=== PATIENT | male | born 1960 | race African-American/Black ===

== ENCOUNTER 2017-03-25 17:24 | Emergency (ER) | payer OTHER ==
[2017-03-25 17:28] VITALS: BP 153/80; PULSE 92; TEMP 102.5; BMI 21.7
--- NOTE | 2017-03-25 17:51 | PDOC ---
Attending Attestation - Resident Resident Name: Srinivas Perez - ED Attending Attestation I have performed the following: I have examined & evaluated the patient, The case was reviewed & discussed with the resident, I agree w/resident's findings & plan, Exceptions are as noted - HPI HPI: 56 yo M history BPH - Physicial Exam PE: GENERAL: Awake, alert, and fully oriented, in no acute distress HEAD: No signs of trauma EYES: PERRLA, EOMI, sclera anicteric, conjunctiva clear ENT: Auricles normal inspection, hearing grossly normal, nares patent, oropharynx clear without exudates. Moist mucosa. R TM wnl. L TM obscured by cerumen. NECK: Normal ROM, supple, no lymphadenopathy, JVD, or masses LUNGS: Breath sounds equal, clear to auscultation bilaterally. No wheezes, and no crackles HEART: Regular rate and rhythm, normal S1 and S2, no murmurs, rubs or gallops ABDOMEN: Soft, +tenderness to L side, normoactive bowel sounds. No guarding, no rebound. No masses EXTREMITIES: Normal range of motion, no edema. No clubbing or cyanosis. No cords, erythema, or tenderness NEUROLOGICAL: Cranial nerves II through XII grossly intact. Normal speech, normal gait SKIN: Warm, Dry, normal turgor, no rashes or lesions noted. - Medical Decision Making Pt with urine sample at the bedside, urine appears cloudy and brown. Poss UTI related to his BPH. Will pursue fever w/u including a flu swab.
[2017-03-25] MEDS ORDERED: SODIUM CHLORIDE 1,000 ML IV STA (17:55)
[2017-03-25] MEDS ORDERED: ACETAMINOPHEN INJECTION 100 ML IVPB ONE (18:20)
[2017-03-25] MEDS ORDERED: ACETAMINOPHEN 325 MG TABLET (FP) ONE ×2 (18:23→19:56)
--- NOTE | 2017-03-25 18:32 | PDOC ---
History of Present Illness - General Chief Complaint: Pain, Acute Stated Complaint: SIDE PAIN/DARK URINE/CHILLS Time Seen by Provider: 03/25/17 17:36 History Source: Patient Exam Limitations: No Limitations - History of Present Illness Initial Comments: 03/25/17 18:27 The patient is a 56 year old male, with a significant past medical history of BPH, Hep C, and daily heroin use who presents to the emergency department with 2 day history of left side pain. Patient states the pain was worsened over the last day, and it is a dull, 4/10 pain that is worse when he coughs. Patient endorses fevers, chills (2 weeks ago that resolved and then recently returned), occasional dysuria, and lightheadedness. Patient denies chest pain, sob, n/v/d/c , abdominal pain, hematuria. Allergies: NKDA Past surgical history: achilles surgery Social history: 1/2 ppd for 20 years, heroin use 10-20 yrs every day (sniffs) PMD - does not have one 03/25/17 18:32 Past History - Past Medical History Allergies/Adverse Reactions: Allergies Allergy/AdvReac Type Severity Reaction Status Date / Time No Known Allergies Allergy Verified 03/25/17 17:28 Home Medications: Ambulatory Orders Sulfamethoxazole/Trimethoprim [Bactrim Ds -] 1 tab PO BID #28 tablet 03/25/17 Other medical history: HEROIN USE LAST USED THIS AM 03/25/17 - Suicide/Smoking/Psychosocial Hx Smoking History: Current every day smoker Number of Cigarettes Smoked Daily: 10 Information on smoking cessation initiated: Yes 'Breaking Loose' booklet given: 03/25/17 Hx Alcohol Use: No Drug/Substance Use Hx: Yes (HEROIN) Substance Use Type: Heroin Review of Systems - Review of Systems Able to Perform ROS?: Yes Comments:: 03/25/17 18:27 GENERAL/CONSTITUTIONAL: +fever,+ chills. No weakness. HEAD, EYES, EARS, NOSE AND THROAT: No change in vision. No ear pain or discharge. No sore throat. CARDIOVASCULAR: No chest pain or shortness of breath RESPIRATORY: No cough, wheezing, or hemoptysis. GASTROINTESTINAL: No nausea, vomiting, diarrhea or constipation. GENITOURINARY: + occasional dysuria, No frequency, Change in color in urine MUSCULOSKELETAL: No joint or muscle swelling or pain. No neck or back pain. SKIN: No rash NEUROLOGIC: No headache, vertigo, loss of consciousness, or change in strength/ sensation. ENDOCRINE: No increased thirst. No abnormal weight change HEMATOLOGIC/LYMPHATIC: No anemia, easy bleeding, or history of blood clots. ALLERGIC/IMMUNOLOGIC: No hives or skin allergy. *Physical Exam - Vital Signs Last Vital Signs Temp Pulse Resp BP Pulse Ox 102.5 F H 92 H 19 153/80 98 03/25/17 17:26 03/25/17 17:26 03/25/17 17:26 03/25/17 17:26 03/25/17 17:57 - Physical Exam Comments: 03/25/17 18:27 GENERAL: Awake, alert, and fully oriented, in no acute distress HEAD: No signs of trauma, normocephalic, atraumatic EYES: PERRLA, EOMI, sclera anicteric, conjunctiva clear ENT: Auricles normal inspection, hearing grossly normal, nares patent, oropharynx clear without exudates. Moist mucosa NECK: Normal ROM, supple, no lymphadenopathy, JVD, or masses LUNGS: No distress, speaks full sentences, clear to auscultation bilaterally HEART: Regular rate and rhythm, normal S1 and S2, no murmurs, rubs or gallops, peripheral pulses normal and equal bilaterally. ABDOMEN: Soft, nontender, normoactive bowel sounds. No guarding, no rebound. No masses. No CVA tenderness EXTREMITIES: Normal inspection, Normal range of motion, no edema. No clubbing or cyanosis. NEUROLOGICAL: Cranial nerves II through XII grossly intact. Normal speech, normal gait, no focal sensorimotor deficits SKIN: Warm, Dry, normal turgor, no rashes or lesions noted. ED Treatment Course - LABORATORY CBC & Chemistry Diagram: 03/25/17 18:18 03/25/17 18:18 - RADIOLOGY Radiology Studies Ordered: Category Date Time Status CHEST PA & LAT [RAD] Stat Radiology 03/25/17 18:17 Ordered Medical Decision Making - Medical Decision Making 03/25/17 18:32 The patient is a 56 year old male, with a significant past medical history of BPH, Hep C, and daily heroin use who presents to the emergency department with 2 day history of left side pain. Given hx/pe, differential includes pyelonephritis, UTI, Pneumonia, Influenze. Will order CBC, CMP, Lactic acid, blood cultures, ua, urine cultures, Flu swab, ekg, chest x ray 03/25/17 20:08 CBC- wbc-14.4 CMP-unremarkable Lactic acid- 0.7 UA- 3+ blood, increased wbc. Patient given 1 dose of IV rocephin. Patient feels better and stable for d/c. *DC/Admit/Observation/Transfer Diagnosis at time of Disposition: Urinary tract infection Qualifiers: Urinary tract infection type: acute pyelonephritis Qualified Code(s): N10 - Acute pyelonephritis; N10 - Acute pyelonephritis - Discharge Dispostion Disposition: HOME Condition at time of disposition: Stable - Prescriptions Prescriptions: Sulfamethoxazole/Trimethoprim [Bactrim Ds -] 1 tab PO BID #28 tablet - Patient Instructions Printed Discharge Instructions: DI for Kidney Infection Additional Instructions: Please follow up with a primary care doctor within 1 week. Take the medication sent to your pharmacy as prescribed for your kidney infection (bactrim 1 tablet two times per day for 14 days) Drink plenty of water to stay hydrated. If you have chest pain, shortness of breath, or any new/worsening symptoms, please come back to the hospital immediately
[2017-03-25 18:53] LABS: MCH 31.1 pg (25.7-33.7); MEAN CELL VOLUME 91.4 fl (80-96); MEAN PLT VOLUME 8.3 fl (7.5-11.1); PLATELET COUNT 145 K/MM3 (134-434); RDW 12.7 % (11.9-15.9); WHITE BLOOD COUNT 14.4 K/mm3 (4.0-10.0)
[2017-03-25 18:57] LABS: URINE APPEARANCE SLCLOUDY; URINE BILIRUBIN NEGATIVE (NEGATIVE); URINE BLOOD 3+ (NEGATIVE); URINE COLOR AMBER; URINE GLUCOSE (UA) NEGATIVE (NEGATIVE); URINE KETONE NEGATIVE (NEGATIVE); URINE NITRITE NEGATIVE (NEGATIVE)
[2017-03-25 18:59] LABS: URINE PROTEIN 1+ (NEGATIVE)
[2017-03-25 19:06] LABS: URINE BACTERIA MODERATE /hpf (NONE SEEN); URINE HYALINE CAST 9 /lpf; URINE RBC 2069 /hpf (0-3); URINE WBC 269 /hpf (3-5)
[2017-03-25 19:16] LABS: ALBUMIN 3.5 g/dl (3.4-5.0); ALK PHOS 69 U/L (45-117); ANION GAP 7 (8-16); CALCIUM 8.6 mg/dL (8.5-10.1); CO2 29 mmol/L (21-32); CREATININE 1.1 mg/dL (0.7-1.3); GLUCOSE,RANDOM 99 mg/dL (74-106); SGOT/AST 21 U/L (15-37); SGPT/ALT 24 U/L (12-78); TOT PROT 7.4 g/dl (6.4-8.2)
[2017-03-25 19:32] LABS: PLATELET ESTIMATE ADEQUATE (NORMAL)
[2017-03-25 19:33] LABS: REACTIVE LYMPHOCYTES 1 % (0-80); TOTAL CELLS COUNTED 100
[2017-03-25] MEDS ORDERED: CEFTRIAXONE 1 GM in DEXTROSE 5%-WATER - 50 ML IVPB ONE (19:41)
[2017-03-25] MEDS ORDERED: ACETAMINOPHEN 500 MG TABLET (FP) PO ONE (19:43)
[2017-03-25] MEDS ORDERED: CEFTRIAXONE 50 ML ONE (19:56)
[2017-03-25 21:06] LABS: URINE LEUK ESTERASE 1+ (NEGATIVE)
== END 2017-03-25 20:46 | disposition home or self-care (01) ==
LOC: JER 17:24
PROC: 3E03329 Introduction of Other Anti-infective into Peripheral Vein, Percutaneous Approach (ICD-10-PCS; principal; 2017-03-25)
PROC: 3E0337Z Introduction of Electrolytic and Water Balance Substance into Peripheral Vein, Percutaneous Approach (ICD-10-PCS; 2017-03-25)
DX: N10 Acute pyelonephritis (principal); N40.0 Benign prostatic hyperplasia without lower urinary tract symptoms; B18.2 Chronic viral hepatitis C; F11.10 Opioid abuse, uncomplicated; F17.210 Nicotine dependence, cigarettes, uncomplicated
CPT/HCPCS: 36415; 71020-TC; 80053; 81003; 81015; 83605; 85025; 87040; 87086; 87186; 87804; 99283-25

== ENCOUNTER 2017-03-27 15:08 | Emergency (ER) | payer OTHER ==
--- NOTE | 2017-03-27 15:20 | PDOC ---
History of Present Illness - General Stated Complaint: REVISIT FOR LAB RESULTS Time Seen by Provider: 03/27/17 15:18 - History of Present Illness Initial Comments: 03/27/17 15:22 Mr. Rick is a 56 yo male with a significant PMH of BPH, Hep C, and daily heroin use who presents for re-evaluation after receiving a call that he needed to return for possible bacteremia. He had initially presented on Sunday with flank pain and was diagnosed with a UTI, but was called this morning after his blood grew gram + cocci in clusters (1 bottle). He reports that he is taking his bactrim as prescribed and his symptoms of dark colored urine with frequency have improved. He also reports waking up in cold sweats for the past 2 days. The patient denies chest pain, shortness of breath, headache and dizziness. Denies nausea, vomit, diarrhea and constipation. Denies dysuria and hematuria. Allergies: NKDA Past surgical history: Achilles heel surgery Social history: Snorts heroin daily Past History - Past Medical History Allergies/Adverse Reactions: Allergies Allergy/AdvReac Type Severity Reaction Status Date / Time No Known Allergies Allergy Verified 03/27/17 15:51 Home Medications: Ambulatory Orders Sulfamethoxazole/Trimethoprim [Bactrim Ds -] 1 tab PO BID #28 tablet 03/25/17 - Suicide/Smoking/Psychosocial Hx Smoking History: Current every day smoker Number of Cigarettes Smoked Daily: 10 'Breaking Loose' booklet given: 03/25/17 Hx Alcohol Use: No Drug/Substance Use Hx: Yes (HEROIN) Substance Use Type: Heroin Review of Systems - Review of Systems Comments:: 03/27/17 15:51 GENERAL/CONSTITUTIONAL: +2 days of fever/chills. No weakness. HEAD, EYES, EARS, NOSE AND THROAT: No change in vision. No ear pain or discharge. No sore throat. CARDIOVASCULAR: No chest pain or shortness of breath RESPIRATORY: No cough, wheezing, or hemoptysis. GASTROINTESTINAL: No nausea, vomiting, diarrhea or constipation. GENITOURINARY: +Improvement of frequency. No dysuria. MUSCULOSKELETAL: No joint or muscle swelling or pain. No neck or back pain. SKIN: No rash NEUROLOGIC: No headache, vertigo, loss of consciousness, or change in strength/ sensation. ENDOCRINE: No increased thirst. No abnormal weight change HEMATOLOGIC/LYMPHATIC: No anemia, easy bleeding, or history of blood clots. ALLERGIC/IMMUNOLOGIC: No hives or skin allergy. *Physical Exam - Physical Exam Comments: 03/27/17 15:52 GENERAL: Awake, alert, and fully oriented, in no acute distress HEAD: No signs of trauma, normocephalic, atraumatic EYES: PERRLA, EOMI, sclera anicteric, conjunctiva clear ENT: Auricles normal inspection, hearing grossly normal, nares patent, oropharynx clear without exudates. Moist mucosa NECK: Normal ROM, supple, no lymphadenopathy, JVD, or masses LUNGS: No distress, speaks full sentences, clear to auscultation bilaterally HEART: Regular rate and rhythm, normal S1 and S2, no murmurs, rubs or gallops, peripheral pulses normal and equal bilaterally. ABDOMEN: Soft, nontender, normoactive bowel sounds. No guarding, no rebound. No masses EXTREMITIES: Normal inspection, Normal range of motion, no edema. No clubbing or cyanosis. NEUROLOGICAL: Cranial nerves II through XII grossly intact. Normal speech, normal gait, no focal sensorimotor deficits SKIN: Warm, Dry, normal turgor, no rashes or lesions noted. ED Treatment Course - LABORATORY CBC & Chemistry Diagram: 03/27/17 16:48 03/27/17 16:48 Medical Decision Making - Medical Decision Making 03/27/17 16:04 Patient represents as requested for re-evaluation. Reports he is feeling better on UTI ABX. Repeat sepsis workup labs ordered. 03/27/17 17:34 Patient continues to have elevated WBC count but decreased from previous value of 14.4 to 11.4. Lactate 0.9. Patient feels improved. Suspect positive blood culture was likely contaminant as different organism from that isolated from urine. Instructed patient to follow-up if any increase in symptoms, fevers, or other concerning developments. Repeat blood cultures taken for follow-up, will contact patient if positive. Laboratory Results - last 24 hr 03/27/17 03/27/17 03/27/17 16:48 16:48 17:00 WBC 11.4 H RBC 4.31 Hgb 13.5 Hct 39.3 MCV 91.1 MCH 31.2 MCHC 34.3 RDW 12.6 MPV 9.7 D Neutrophils % 77.5 Lymphocytes % 9.5 D Monocytes % 12.5 H Eosinophils % 0.0 D Basophils % 0.5 Sodium 132 L Potassium 4.7 Chloride 98 Carbon Dioxide 22 D Anion Gap 12 BUN 12 D Creatinine 1.0 Creat Clearance w eGFR > 60 Random Glucose 72 L D Lactic Acid Calcium 8.2 L Total Bilirubin 0.7 D AST 49 H D ALT 31 D Alkaline Phosphatase 71 Total Protein 7.0 Albumin 3.0 L Urine Color Dkyellow Urine Appearance Slcloudy Urine pH 6.0 Urine Protein 1+ H Urine Glucose (UA) Negative Urine Ketones Negative Urine Blood 3+ H Urine Nitrite Negative Urine Bilirubin Negative Urine Urobilinogen 4.0 e.u/dl 03/27/17 17:00 WBC RBC Hgb Hct MCV MCH MCHC RDW MPV Neutrophils % Lymphocytes % Monocytes % Eosinophils % Basophils % Sodium Potassium Chloride Carbon Dioxide Anion Gap BUN Creatinine Creat Clearance w eGFR Random Glucose Lactic Acid 0.9 Calcium Total Bilirubin AST ALT Alkaline Phosphatase Total Protein Albumin Urine Color Urine Appearance Urine pH Urine Protein Urine Glucose (UA) Urine Ketones Urine Blood Urine Nitrite Urine Bilirubin Urine Urobilinogen 03/27/17 18:33 03/27/17 18:34 *DC/Admit/Observation/Transfer Diagnosis at time of Disposition: Urinary tract infection Qualifiers: Urinary tract infection type: site unspecified Hematuria presence: with hematuria Qualified Code(s): N39.0 - Urinary tract infection, site not specified ; N39.0 - Urinary tract infection, site not specified; R31.9 - Hematuria, unspecified; R31.9 - Hematuria, unspecified - Discharge Dispostion Disposition: HOME - Patient Instructions Printed Discharge Instructions: DI for Urinary Tract Infection (UTI) Additional Instructions: Please return immediately if any fever uncontrollable with tylenol, altered mental status, or other concerning symptoms.
[2017-03-27] MEDS ORDERED: SODIUM CHLORIDE 1,000 ML IV STA (15:43)
[2017-03-27] MEDS ORDERED: VANCOMYCIN 1 GRAM (PRE-DOCKED) 1,000 MG/250 ML BAG IVPB ONE (15:45)
[2017-03-27] MEDS ORDERED: PIPERACILLIN/TAZOB 3.375 GM/50 ML PRE-DOCKED IVPB ONE (15:46)
[2017-03-27 15:51] VITALS: TEMP 99.1; BMI 21.7
[2017-03-27 16:56] LABS: BASOPHIL 0.5 % (0-2.0); MCH 31.2 pg (25.7-33.7)
[2017-03-27 17:08] LABS: MCHC 34.3 g/dl (32.0-35.9); MEAN CELL VOLUME 91.1 fl (80-96); MEAN PLT VOLUME 9.7 fl (7.5-11.1); NEUTROPHILS 77.5 % (42.8-82.8); RDW 12.6 % (11.9-15.9); WHITE BLOOD COUNT 11.4 K/mm3 (4.0-10.0)
[2017-03-27] MEDS ORDERED: PIPERACILLIN/TAZOB 3.375 GM 50 ML IVPB ONE (17:12)
[2017-03-27 17:19] LABS: ALK PHOS 71 U/L (45-117); ANION GAP 12 (8-16); BILIRUBIN,TOTAL 0.7 mg/dL (0.2-1.0); CALCIUM 8.2 mg/dL (8.5-10.1); CO2 22 mmol/L (21-32); GLUCOSE,RANDOM 72 mg/dL (74-106); SGOT/AST 49 U/L (15-37); SGPT/ALT 31 U/L (12-78)
--- NOTE | 2017-03-27 17:31 | PDOC ---
Attending Attestation - Resident Resident Name: Jase Cueto - ED Attending Attestation I have performed the following: I have examined & evaluated the patient, The case was reviewed & discussed with the resident, I agree w/resident's findings & plan, Exceptions are as noted - HPI HPI: 03/27/17 17:31 56 yo male with a significant PMH of BPH, Hep C, daily heroin use, recently seen in our ED for a UTI and sent home with bactrim presents to the ED after he was found to have +blood culture. Pt reports he feels a lot better since taking the bactrim. He reports chills once since starting the antibiotics but denies other symptoms. Denies fevers, CP, SOB, abd pain, focal weakness or numbness, headache. - Physicial Exam PE: 03/27/17 17:34 GENERAL: Awake, alert, and fully oriented, in no acute distress HEAD: No signs of trauma EYES: PERRLA, EOMI, sclera anicteric, conjunctiva clear ENT: Auricles normal inspection, hearing grossly normal, nares patent, oropharynx clear without exudates. Moist mucosa NECK: Normal ROM, supple, no lymphadenopathy, JVD, or masses LUNGS: Breath sounds equal, clear to auscultation bilaterally. No wheezes, and no crackles HEART: Regular rate and rhythm, normal S1 and S2, no murmurs, rubs or gallops ABDOMEN: Soft, non tender, normoactive bowel sounds. No guarding, no rebound. No masses EXTREMITIES: Normal range of motion, no edema. No clubbing or cyanosis. No cords, erythema, or tenderness NEUROLOGICAL: Normal speech, cranial nerves intact, negative pronator drift, 5/ 5 strength in all 4 extremities, normal sensation to light touch in all 4 extremities, normal cerebellar exam, normal gait, normal reflexes and tone SKIN: Warm, Dry, normal turgor, no rashes or lesions noted. - Medical Decision Making 03/27/17 17:34 56yo M recently dx with UTI, recalled for + blood cx in 1/2 bottles. Likely a contaminant as UCx grew something different, pt reports he is feeling better, vitals here are wnl. Alternatively, it is possible that the patient is bacteremic, given his recent UTI and fevers and so I recommended to patient that we admit him for observation while we await his repeat blood cultures. Pt adamantly refuses to stay as he states he feels better since starting the bactrim. The patient is clinically sober, free from distracting injury, appears to have intact insight and judgment and reason and in my opinion has the capacity to make decisions. We discussed atleast repeating his WBC and observing him for a few hours in the ED which he agreed. We will also repeat his blood/urine cultures. -labs -rpt ua/ucx -rpt blood cx -IVF -dose of Vanc/Zosyn
[2017-03-27] MEDS ORDERED: VANCOMYCIN 1 GRAM (PRE-DOCKED) 250 ML IVPB ONE (17:32)
[2017-03-27 17:36] LABS: URINE APPEARANCE SLCLOUDY; URINE BILIRUBIN NEGATIVE (NEGATIVE); URINE BLOOD 3+ (NEGATIVE); URINE COLOR DKYELLOW; URINE GLUCOSE (UA) NEGATIVE (NEGATIVE); URINE KETONE NEGATIVE (NEGATIVE); URINE NITRITE NEGATIVE (NEGATIVE); URINE UROBILINOGEN 4.0 E.U/dl mg/dL (0.2-1.0)
[2017-03-27 17:50] LABS: URINE PROTEIN 1+ (NEGATIVE)
[2017-03-27 18:39] LABS: PLATELET COMMENT2 NO CLOTTING DETECTED; PLATELET COUNT 141 K/MM3 (134-434); PLATELET ESTIMATE SLT DECREASED (NORMAL)
[2017-03-27 18:57] LABS: URINE BACTERIA RARE /hpf (NONE SEEN); URINE RBC 1414 /hpf (0-3); URINE WBC 7 /hpf (3-5)
[2017-03-27 19:00] VITALS: BP 152/80; PULSE 68
[2017-03-27 22:24] LABS: URINE LEUK ESTERASE TRACE (NEGATIVE)
== END 2017-03-27 19:57 | disposition home or self-care (01) ==
LOC: JER 15:08
PROC: 3E03329 Introduction of Other Anti-infective into Peripheral Vein, Percutaneous Approach (ICD-10-PCS; principal; 2017-03-27)
PROC: 3E0337Z Introduction of Electrolytic and Water Balance Substance into Peripheral Vein, Percutaneous Approach (ICD-10-PCS; 2017-03-27)
DX: N39.0 Urinary tract infection, site not specified (principal); R31.9 Hematuria, unspecified; N40.0 Benign prostatic hyperplasia without lower urinary tract symptoms; F17.210 Nicotine dependence, cigarettes, uncomplicated
CPT/HCPCS: 36415; 80053; 81003; 81015; 83605; 85025; 87040; 87086; 96365; 96375; 99282-25

== ENCOUNTER 2017-04-08 15:20 | Emergency (ER) | payer OTHER ==
[2017-04-08 15:26] VITALS: BP 139/80; PULSE 80; TEMP 98.8; BMI 20.4
[2017-04-08 16:06] LABS: URINE APPEARANCE CLEAR; URINE BILIRUBIN NEGATIVE (NEGATIVE); URINE BLOOD NEGATIVE (NEGATIVE); URINE COLOR YELLOW; URINE GLUCOSE (UA) NEGATIVE (NEGATIVE); URINE KETONE 1+ (NEGATIVE); URINE NITRITE NEGATIVE (NEGATIVE); URINE PROTEIN NEGATIVE (NEGATIVE)
--- NOTE | 2017-04-08 16:16 | PDOC ---
History of Present Illness - General History Source: Patient Exam Limitations: No Limitations - History of Present Illness Initial Comments: 04/08/17 16:43 57 y/o M with a PMHx of BPH, Hep C presents to the ED with generalized weakness for 2 days. He reports associated chills, loss of appetite and difficulty sleeping. He also reports recent weight loss. He states he self medicated with Methadone at first then snorted heroin with no relief for two days. Patient was here two weeks ago for UTI and was discharged on Bactrim. He denies any current UTI symptoms. Denies flank pain, dysuria. Denies fever, nausea, vomiting, constipation. Denies chest pain, SOB. <Constanza Hernandez - Last Filed: 04/08/17 16:42> <Yennifer Moody - Last Filed: 04/08/17 20:30> <Uzma Villagomez - Last Filed: 04/11/17 16:24> - General Chief Complaint: Weakness Stated Complaint: REVISIT/ WEAKNESS Time Seen by Provider: 04/08/17 15:54 Past History <Constanza Hernandez - Last Filed: 04/08/17 16:42> <Yennifer Moody - Last Filed: 04/08/17 20:30> - Past Medical History Disorders: Yes (ENLARGED PROSTATE) Liver Disease: No (HEP C) - Suicide/Smoking/Psychosocial Hx Smoking History: Current every day smoker Number of Cigarettes Smoked Daily: 8 Information on smoking cessation initiated: No 'Breaking Loose' booklet given: 03/25/17 Hx Alcohol Use: No Drug/Substance Use Hx: No Substance Use Type: Heroin <Uzma Villagomez - Last Filed: 04/11/17 16:24> - Past Medical History Allergies/Adverse Reactions: Allergies Allergy/AdvReac Type Severity Reaction Status Date / Time No Known Allergies Allergy Verified 04/08/17 15:26 Home Medications: Ambulatory Orders Sulfamethoxazole/Trimethoprim [Bactrim Ds -] 1 tab PO BID #28 tablet 03/25/17 Review of Systems - Review of Systems Able to Perform ROS?: Yes Comments:: 04/08/17 16:43 GENERAL/CONSTITUTIONAL: (+) generalized weakness, chills, loss of appetite, difficulty sleeping. No chills. HEAD, EYES, EARS, NOSE AND THROAT: No change in vision. No ear pain or discharge. No sore throat. CARDIOVASCULAR: No chest pain or shortness of breath. RESPIRATORY: No cough, wheezing, or hemoptysis. GASTROINTESTINAL: No nausea, vomiting, diarrhea or constipation. GENITOURINARY: No dysuria, frequency, or change in urination. MUSCULOSKELETAL: No joint or muscle swelling or pain. No neck or back pain. SKIN: No rash NEUROLOGIC: No headache, vertigo, loss of consciousness, or change in strength/ sensation. ENDOCRINE: (+) weight loss. No increased thirst. HEMATOLOGIC/LYMPHATIC: No anemia, easy bleeding, or history of blood clots. ALLERGIC/IMMUNOLOGIC: No hives or skin allergy. <Constanza Hernandez - Last Filed: 04/08/17 16:42> *Physical Exam - Vital Signs Last Vital Signs Temp Pulse Resp BP Pulse Ox 98.8 F 80 20 139/80 100 04/08/17 15:22 04/08/17 15:22 04/08/17 15:22 04/08/17 15:22 04/08/17 15:22 <MaryConstanza A - Last Filed: 04/08/17 16:42> - Vital Signs Last Vital Signs Temp Pulse Resp BP Pulse Ox 98.8 F 80 20 139/80 100 04/08/17 15:22 04/08/17 15:22 04/08/17 15:22 04/08/17 15:22 04/08/17 15:22 <Yennifer Moody - Last Filed: 04/08/17 20:30> - Vital Signs Last Vital Signs Temp Pulse Resp BP Pulse Ox 98.8 F 80 20 139/80 100 04/08/17 15:22 04/08/17 15:22 04/08/17 15:22 04/08/17 15:22 04/08/17 15:22 - Physical Exam Comments: GENERAL: Awake, alert, and fully oriented, in no acute distress. Appears thin, chronically ill. HEAD: No signs of trauma. +Temporal wasting. EYES: PERRLA, EOMI, sclera anicteric, conjunctiva clear ENT: Auricles normal inspection, hearing grossly normal, nares patent, oropharynx clear without exudates. Dry mucosa NECK: Normal ROM, supple, no lymphadenopathy, JVD, or masses LUNGS: Breath sounds equal, clear to auscultation bilaterally. No wheezes, and no crackles HEART: Regular rate and rhythm, normal S1 and S2, no murmurs, rubs or gallops ABDOMEN: Soft, nontender, normoactive bowel sounds. No guarding, no rebound. No masses EXTREMITIES: Normal range of motion, no edema. No clubbing or cyanosis. No cords, erythema, or tenderness NEUROLOGICAL: Cranial nerves II through XII grossly intact. Normal speech, normal gait SKIN: Warm, Dry, normal turgor, no rashes or lesions noted. <Uzma Villagomez - Last Filed: 04/11/17 16:24> ED Treatment Course - ADDITIONAL ORDERS Additional order review: Laboratory Results 04/08/17 16:00 Urine Color Yellow Urine Appearance Clear Urine pH 7.0 Urine Protein Negative Urine Glucose (UA) Negative Urine Ketones 1+ H Urine Blood Negative Urine Nitrite Negative Urine Bilirubin Negative Urine Urobilinogen 2.0 <Constanza Hernandez - Last Filed: 04/08/17 16:42> - LABORATORY CBC & Chemistry Diagram: 04/08/17 16:30 04/08/17 18:20 - ADDITIONAL ORDERS Additional order review: Laboratory Results 04/08/17 04/08/17 04/08/17 18:20 16:30 16:00 Sodium 133 L Cancelled Potassium 4.5 Cancelled Chloride 99 Cancelled Carbon Dioxide 26 Cancelled Anion Gap 8 Cancelled BUN 13 Cancelled Creatinine 1.1 Cancelled Creat Clearance w eGFR > 60 Cancelled Random Glucose 83 Cancelled Calcium 8.9 Cancelled Total Bilirubin 0.6 Cancelled AST 27 D Cancelled ALT 36 Cancelled Alkaline Phosphatase 79 Cancelled Total Protein 8.5 H D Cancelled Albumin 3.8 D Cancelled Urine Color Yellow Urine Appearance Clear Urine pH 7.0 Ur Specific [place] 1.010 Urine Protein Negative Urine Glucose (UA) Negative Urine Ketones 1+ H Urine Blood Negative Urine Nitrite Negative Urine Bilirubin Negative Urine Urobilinogen 2.0 Ur Leukocyte Esterase Negative 04/08/17 16:30 RBC 5.19 D MCV 88.2 MCHC 34.7 RDW 13.3 MPV 6.8 L D Neutrophils % 79.6 Lymphocytes % 15.8 D Monocytes % 4.0 Eosinophils % 0.1 D Basophils % 0.5 - Medications Given in the ED: ED Medications Discontinued Medications Generic Name Dose Route Start Last Admin Trade Name Rusty PRN Reason Stop Dose Admin Sodium Chloride 1,000 mls @ 1,000 mls/hr 04/08/17 17:00 04/08/17 17:36 Normal Saline - IV 04/08/17 17:59 1,000 mls/hr ASDIR STA Administration <Yennifer Moody - Last Filed: 04/08/17 20:30> - LABORATORY CBC & Chemistry Diagram: 04/08/17 16:30 04/08/17 18:20 <Uzma Villagomez - Last Filed: 04/11/17 16:24> Medical Decision Making - Medical Decision Making 04/08/17 20:20 I received pt on signout. His labs and vitals and XRAY and HIV tests are all normal. He comes with temporal wasting, weight loss and weakness. Nothing apparent at this time. Pt is feeling better after hydration and wants to go home. Pt will be asked to follow with PMD. <Yennifer Moody - Last Filed: 04/08/17 20:30> - Medical Decision Making Pt presents with weakness, weight loss. Initially refused HIV test, however, I was concerned based on his appearance with temporal wasting. He later agreed to it. No night sweats, cough. No exposures to incarcerated persons. No travel. TB less likely. Awaiting labs, UA. Cultures pending (as per chart review he previously had a positive blood culture). <Uzma Villagomez - Last Filed: 04/11/17 16:24> *DC/Admit/Observation/Transfer - Attestations Scribe Attestion: 04/08/17 16:43 Documentation prepared by Constanza Hernandez, acting as medical communication specialist for Uzma Villagomez MD. <Constanza Hernandez - Last Filed: 04/08/17 16:42> - Discharge Dispostion Admit: No <Yennifer Moody - Last Filed: 04/08/17 20:30> <Uzma Villagomez - Last Filed: 04/11/17 16:24> Diagnosis at time of Disposition: Weakness, Heroin addiction - Discharge Dispostion Disposition: HOME Condition at time of disposition: Improved - Referrals Referrals: Des Mcdowell [Primary Care Provider] - - Patient Instructions Printed Discharge Instructions: DI for Muscle Weakness, DI for Fatigue, Physical Activity and Therapy May Decrease Fatigue in People with Rheumatoi - Post Discharge Activity Forms/Work/School Notes: Back to Work
[2017-04-08 16:46] LABS: BASOPHIL 0.5 % (0-2.0); EOSINOPHIL 0.1 % (0-4.5); MCH 30.6 pg (25.7-33.7); MCHC 34.7 g/dl (32.0-35.9); MEAN CELL VOLUME 88.2 fl (80-96); MEAN PLT VOLUME 6.8 fl (7.5-11.1); NEUTROPHILS 79.6 % (42.8-82.8); PLATELET COUNT 313 K/MM3 (134-434); RDW 13.3 % (11.9-15.9); WHITE BLOOD COUNT 5.4 K/mm3 (4.0-10.0)
[2017-04-08] MEDS ORDERED: SODIUM CHLORIDE 1,000 ML IV STA (17:00)
[2017-04-08 19:07] LABS: ALBUMIN 3.8 g/dl (3.4-5.0); ALK PHOS 79 U/L (45-117); ANION GAP 8 (8-16); BILIRUBIN,TOTAL 0.6 mg/dL (0.2-1.0); CALCIUM 8.9 mg/dL (8.5-10.1); CO2 26 mmol/L (21-32); CREATININE 1.1 mg/dL (0.7-1.3); GLUCOSE,RANDOM 83 mg/dL (74-106); SGPT/ALT 36 U/L (12-78); TOT PROT 8.5 g/dl (6.4-8.2)
[2017-04-08 19:09] LABS: URINE LEUK ESTERASE Negative (NEGATIVE)
[2017-04-08 19:26] LABS: SGOT/AST 27 U/L (15-37)
[2017-04-08 20:03] LABS: HIV 1 & 2 AB NEGATIVE; HIV 1 AGp24 NEGATIVE
== END 2017-04-08 20:36 | disposition home or self-care (01) ==
LOC: JER 15:20
PROC: 3E0337Z Introduction of Electrolytic and Water Balance Substance into Peripheral Vein, Percutaneous Approach (ICD-10-PCS; principal; 2017-04-08)
DX: R53.1 Weakness (principal); F11.20 Opioid dependence, uncomplicated; N40.0 Benign prostatic hyperplasia without lower urinary tract symptoms; B18.2 Chronic viral hepatitis C; R63.4 Abnormal weight loss; Z68.20 Body mass index [BMI] 20.0-20.9, adult
CPT/HCPCS: 36415; 71020-TC; 80053; 81003; 85025; 87040; 87086; 87389; 96360; 99283-25

== ENCOUNTER 2020-06-07 12:11 | Emergency (ER) | payer OTHER ==
[2020-06-07 12:29] VITALS: BMI 21.1
[2020-06-07] MEDS ORDERED: SODIUM CHLORIDE 0.9% 500 ML INFUS.BAG IV ONE (13:20)
[2020-06-07 14:29] LABS: BASO % 0.6 % (0-2.0); EOS % 0.4 % (0-4.5); HEMATOCRIT 43.4 % (35.4-49); HEMOGLOBIN 14.6 GM/dL (11.7-16.9); LYMPH % 21.5 % (8-40); MCH 30.6 pg (25.7-33.7); MCHC 33.5 g/dl (32.0-35.9); MEAN CELL VOLUME 91.1 fl (80-96); MEAN PLT VOLUME 8.2 fl (7.5-11.1); MONO % 7.8 % (3.8-10.2); NEUT % 69.7 % (42.8-82.8); PLATELET COUNT 213 K/MM3 (134-434); RBC 4.76 M/mm3 (4.00-5.60); RDW 12.9 % (11.9-15.9); WHITE BLOOD COUNT 5.5 K/mm3 (4.0-10.0)
[2020-06-07 14:38] LABS: INR 1.19 (0.83-1.09); PROTHROMBIN TIME (PATIENT) 14.6 SEC (9.7-13.0)
[2020-06-07 14:40] LABS: ACTIVATED PTT 35.3 SECONDS (25.2-36.5)
[2020-06-07 14:47] LABS: POTASSIUM 4.6 mmol/L (3.5-5.1)
[2020-06-07 14:50] LABS: ALBUMIN 3.9 g/dl (3.4-5.0); BLOOD UREA NITROGEN 8.5 mg/dL (7-18)
[2020-06-07 14:53] LABS: CREATININE 1.1 mg/dL (0.55-1.3)
[2020-06-07 14:54] LABS: BILIRUBIN,TOTAL 0.6 mg/dL (0.2-1); TOT PROT 7.9 g/dl (6.4-8.2)
[2020-06-07 16:06] VITALS: BP 127/66; PULSE 72; TEMP 98.6
== END 2020-06-07 16:06 | disposition home or self-care (01) ==
LOC: JER 12:11
DX: U07.1 COVID-19 (principal)
CPT/HCPCS: 36415; 71045-TC-FY; 80053; 85025; 85610; 85730; 99284-25

== ENCOUNTER 2024-09-25 08:11 | Emergency (ER) | payer OTHER ==
[2024-09-25 08:28] VITALS: BMI 21.7
[2024-09-25] MEDS ORDERED: SODIUM CHLORIDE 1,000 ML IV SCH (10:15)
[2024-09-25 13:05] LABS: ABSOLUTE IMMATURE GRANULOCYTES 0.02 x10^3/uL (0.0-0.031); BASOPHILS # 0.02 x10^3/uL (0.01-0.08); EOSINOPHIL % 2.9 % (0.8-7.0); EOSINOPHILS # 0.16 x10^3/uL (0.04-0.54); HEMATOCRIT 41.1 % (40.1-51.0); HEMOGLOBIN 13.7 g/dL (13.7-17.5); MCHC 33.3 g/dl (32.3-36.5); MEAN CELL VOLUME 92.4 fl (79.0-92.2); MEAN PLT VOLUME 9.1 fl (9.4-12.4); MONOCYTE # 0.36 x10^3/uL (0.30-0.82); MONOCYTE % 6.5 % (5.3-12.2); PLATELET COUNT 187 x10^3/uL (163-337); RDW 12.1 % (12.2-16.4)
[2024-09-25 13:13] LABS: INR 1.11 (0.83-1.09); PROTHROMBIN TIME (PATIENT) 12.1 SEC (9.7-13.0)
[2024-09-25 13:16] LABS: ACTIVATED PTT 37.4 SECONDS (25.2-36.5)
[2024-09-25 13:28] LABS: POTASSIUM 4.9 mmol/L (3.5-5.1)
[2024-09-25 13:31] LABS: ALBUMIN 3.8 g/dl (3.4-5.0); BLOOD UREA NITROGEN 7.8 mg/dL (7-18); CALCIUM 9.5 mg/dL (8.5-10.1)
[2024-09-25 13:36] LABS: BILIRUBIN,TOTAL 0.4 mg/dL (0.2-1); TOT PROT 7.4 g/dl (6.4-8.2)
[2024-09-25 14:10] VITALS: BP 152/91; PULSE 67; RESP 16; TEMP 98.1
== END 2024-09-25 14:04 | disposition home or self-care (01) ==
LOC: JER 08:11
DX: R20.0 Anesthesia of skin (principal); R53.1 Weakness
CPT/HCPCS: 36415; 70450-TC; 70551-TC; 71045-TC-FY; 80053; 82550; 84484; 85025; 85610; 85730; 86850; 86900; 86901; 99291